=== PATIENT | female | born 1990 | race Caucasian/White ===

== ENCOUNTER 2018-08-24 11:00 | Inpatient (IN) | payer OTHER ==
[~2018-08-24] VITALS: Ht 167.6 cm; Wt 50.0 kg
[2018-08-24 11:06] VITALS: Ht 167.6 cm; Wt 50.0 kg
--- NOTE | 2018-08-24 11:18 | NUR ---
TO ROOM 11 FOR EVAL.
--- NOTE | 2018-08-24 11:30 | NUR ---
AWAKE ALERT ORIENTED,WAS SEEN IN [facility] TODAY ,C/O MID ABDOMINAL PIN WITH VOMITING
--- NOTE | 2018-08-24 11:58 | NUR ---
MEDICATED FOR ABD,PAIN AND VOMITING FLUIDS NSS WIDE OPEN
[2018-08-24 12:03] LABS: BASOPHIL % 0.1 % (0-2); PLATELET COUNT 452 x10^3mcL (130-400); RED CELL DISTRIBUTION WIDTH 14.1 % (11.5-14.5)
[2018-08-24 12:20] LABS: ALBUMIN 3.8 g/dL (3.4-5.0); ALKALINE PHOSPHATASE 73 U/L (46-116); ALT/SGPT 37 U/L (14-59); AST/SGOT 42 U/L (15-37); BILIRUBIN TOTAL 1.6 mg/dL (0.20-1.00); CALCIUM 8.4 mg/dL (8.5-10.1); CARBON DIOXIDE 20.9 mmol/L (21-32); CHLORIDE SERUM 84 mmol/L (98-107); GFR1 > 60 mL/min; GLUCOSE SERUM 197 mg/dL (74-106); LIPASE 169 IU/L (73-393); POTASSIUM SERUM 3.7 mmol/L (3.5-5.1); TOTAL PROTEIN, SERUM 7.7 g/dL (6.4-8.2)
[2018-08-24 12:23] LABS: SODIUM SERUM 123 mmol/L (136-145)
--- NOTE | 2018-08-24 13:11 | NUR ---
REMAINS NAUSEATED AND VOMITING ,MEDICATED WITH ZOFRAN FOR ADMISSION,,REPORT GIVEN TO YAMILETH
--- NOTE | 2018-08-24 13:45 | NUR ---
TOOK OVER CARE OF PATIENT. PATIENT STIL C/O NAUSEA - WAS MEDICATED IN ER WITH ZOFRAN. NO VOMITING. IV INFUSION OF NS COMMENCED AT 100 ML/HR. FATHER AT BEDSIDE.
[2018-08-24 13:48] VITALS: BP 126/80
--- NOTE | 2018-08-24 13:58 | NUR ---
RECEIVED PT FROM ER, PT ADMIT FOR HYPONATREMIA, INTRACTABLE VOMITTING, PT IS A/O X4, VERBAL RESPONSIVE, ABLE TO TELL WHAT SHE NEEDS, LUNG SOUND CLEAR BILATERAL, NO COUGH, NO SOB, PT IS ON TELE 35, ST, DENY ANY CHEST PAIN, BOWEL SOUND PRESENT ALL 4 QUADRANTS, NO DISTENTION, BUT C/O ABD PAIN 11/28, CONSTANTLY N/V, PT STATE SHE HAS BEEN DRINK SINCE FRIDAY, 3 DAYS STRAIGHT, PEDAL PULSE PRESENT BOTH FEET, NO EDEMA, IV AT RIGHT AC, NO LEAKING,NO INFILTRATION. ALL ADLS ASSIST, ALL NEED MET, CALL LIGHT IN REACH, WILL CONTINUE TO MONITOR.
--- NOTE | 2018-08-24 15:30 | NUR ---
AT 1510 - RECEIVED CALL FROM LAB WITH LACTIC ACID OF 3.[address] METZ. NO CHANGE IN ORDERS REQUIRED.
[2018-08-24] MEDS ORDERED: SEROQUEL25 MG PO (15:54)
[2018-08-24] MEDS ORDERED: TRILEPTAL300 MG PO (15:55)
--- NOTE | 2018-08-24 15:59 | NUR ---
PATIENT C/O PERSISTANT NAUSEA. SPOKE WITH DR METZ. NEW ORDER FOR REGLAN RECEIVED AND ADMINISTERED PER EMAR. PATIENT'S FATHER AT BEDSIDE.
--- NOTE | 2018-08-24 18:26 | NUR ---
AT 1740 - PATIENT REPORTS THAT NAUSEA HAS SUBSIDED. HOME MEDS LIST UPDATED AND DR METZ WAS NOTIFIED. ORDERS HAVE BEEN RECEIVED FOR CONTINUATION OF PATIENT'S HOME MEDS. NO C/O PAIN. IV INFUSING NS AT 100ML/HR. NPO EXCEPTS MEDS AND ICE CHIPS. PATIENT IS AWARE OF NEED TO COLLECT URINE FOR UA. CONTAINER PROVIDED. WILL ENDORSE CARE TO NIGHT NURSE.
[2018-08-24 18:36] VITALS: BP 113/80
--- NOTE | 2018-08-24 19:41 | NUR ---
SHIFT REASSESSMENT DONE.PATIENT ALERT AND ORIENTED.SZ PRECAUTION,NA IS LOW.BREATHING EASY.AMBULATORY/MILD GEN WEAKNESS.NS AT [address]VOIDING.NEED UA,NOT COLLECTED YET,PATIENT AWARE.SKIN INTACT.PARENTS AT BEDSIDE,SUPPORTIVE OF CARE.CALL LIGHT IN REACH.
[2018-08-24 20:16] VITALS: BP 122/79
--- NOTE | 2018-08-24 20:51 | NUR ---
PHOS IS LOW FROM PREVIOUS SHIFT,DR CARLTON MADE AWARE.
--- NOTE | 2018-08-24 21:04 | NUR ---
UA SENT TO LAB.UDS URC AND UA.
--- NOTE | 2018-08-24 21:05 | NUR ---
K PHOS NEUTRAL PO GIVEN,SWALLOWS WELL,GIVEN TACHO SURYA TO GO WITH IT.
[2018-08-24 21:29] LABS: microscopic required? YES; urine erythrocyte TRACE (NEGATIVE)
[2018-08-24 21:37] LABS: AMPHETAMINE QUAL UR NONE DETECTED (See below)
--- NOTE | 2018-08-24 23:43 | NUR ---
PATIENT CHECKED AT INTERVALS,SLEEPING COMFORTABLY.CALL LIGHT IN REACH.
--- NOTE | 2018-08-25 00:36 | NUR ---
CHECKED, NURSING ROUNDS,AWAKENED BY IV ALARM.NO COMPLAINT.
--- NOTE | 2018-08-25 05:40 | NUR ---
BRP,I AND O MEASURED.IVF INFUSING.AM MED GIVEN.NO DISTRESS.REMAINS NPO,ICE CHIPS REQUESTED TO MOISTEN MOUTH.
[2018-08-25 05:54] VITALS: BP 119/80
[2018-08-25 06:41] LABS: BASOPHIL % 0.3 % (0-2); PLATELET COUNT 245 x10^3mcL (130-400); RED CELL DISTRIBUTION WIDTH 14.5 % (11.5-14.5)
[2018-08-25 07:03] LABS: CALCIUM 7.7 mg/dL (8.5-10.1); CARBON DIOXIDE 24.3 mmol/L (21-32); CHLORIDE SERUM 98 mmol/L (98-107); CREATININE SERUM 0.7 mg/dL (0.6-1.0); GFR1 > 60 mL/min; GLUCOSE SERUM 92 mg/dL (74-106); MAGNESIUM 2.2 mg/dL (1.8-2.4); PHOSPHOROUS 1.6 mg/dL (2.5-4.9); SODIUM SERUM 133 mmol/L (136-145)
--- NOTE | 2018-08-25 07:33 | NUR ---
RECEIVED PT'S REPORT FROM LEAVING NURSE. PT SEEN REST ON BED, SEIZURE PRECAUTION APPLIED. PT REPORTED ABD MUSCLE SORE 2/2 PREVIOUS VOMITING, DENIED NAUSEA AT THIS TIME. PT BREATHING ON RA, EVEN, UN LABORED. IV SITE PATENT, INTACT. IVF INFUSING WELL.
[2018-08-25 08:06] LABS: T3 TOTAL 1.06 ng/mL
[2018-08-25 08:07] LABS: FREE T4 1.09 ng/dL (0.76-1.46); FREE THYROXINE INDEX 2.7 ug/dL (1.4-4.5); T4(THYROXINE) 6.8 ug/dL (4.7-13.3)
[2018-08-25 09:13] VITALS: BP 100/50; BP 122/85
--- NOTE | 2018-08-25 11:29 | NUR ---
PAGE GATED DR. METZ ABOUT PT'S LOW K 3.0. WAITING FOR ORDER.
[2018-08-25 12:59] VITALS: BP 126/84
--- NOTE | 2018-08-25 14:30 | NUR ---
POTASSIUM 40MEQ GIVEN PER ORDER. IV KCL 40MEQ IS INFUSING.
--- NOTE | 2018-08-25 18:00 | NUR ---
THROUGH SHIFT, PT TOLERATE WELL WITH CURRENT DIET. NO COMPLAIN OF NAUSEA. PT BREATHING ON RA, EVEN, UNLABORED. PT AMBULATORY. IV SITE PATENT, INTACT. IVF INFUSING WELL.
[2018-08-25 18:08] VITALS: BP 129/86
--- NOTE | 2018-08-25 19:10 | NUR ---
PT'S REPORT GIVEN TO RECEIVING NURSE. QUESTIONS AND CONCERNS ANSWER.
--- NOTE | 2018-08-25 19:24 | NUR ---
SHIFT REASSESSMENT DONE.PATIENT ALERT AND OREINTED.NOT IN RESP DISTRESS.IVF NS AT 70 CC/ HOUR.IN GOOD SPIRIT.TELE 35 SR.NO CHEST PAIN.TELE 35 SR.NO VOMITING,NOW ON FULL LIQUID DIET.CALL LIGHT IN REACH.
[2018-08-25 20:43] VITALS: BP 115/78
--- NOTE | 2018-08-25 23:17 | NUR ---
PATIENT TOOK ALL PM MEDS,SWALLOWS WELL.UP AND ABOUT RESTROOM,VOIDING QS.HAPPY THAT SHE IS NOW ON FULL LIQUID DIET.QUIET ENVIRONMENT MAINTAINED.CALL LIGHT IN REACH.
--- NOTE | 2018-08-26 02:45 | NUR ---
CHECKED FOR NEEDS,NO COMPLAINT.
[2018-08-26 05:38] VITALS: BP 104/67
--- NOTE | 2018-08-26 05:50 | NUR ---
AM MED GIVEN.I AND O MEASURED.NS AT 70 CC/ HOUR.WILL ENDORSE TO NEXT SHIFT.
[2018-08-26 06:54] LABS: BASOPHIL % 0.5 % (0-2); PLATELET COUNT 191 x10^3mcL (130-400)
[2018-08-26 07:01] LABS: RED CELL DISTRIBUTION WIDTH 14.8 % (11.5-14.5)
--- NOTE | 2018-08-26 07:05 | NUR ---
RECEIVED PATIENT FROM AML ANALYST NURSE. PATIENT IS RESTING WITH BOTH EYES CLOSED, AROUSABLE. TELE#35, SR, HR 85. SEIZURE PREC IN PLACE. ON ROOM AIR, BREATHING EVEN AND UNLABORED. ASPIRATION PREC IN PLACE. IV NOTED TO RAC, IVF INFUSING WELL ORDERED, NO S/S ERYTHEMA AT SITE. CALL LIGHT WITHIN EASY REACH. WILL CONTINUE PLAN OF CARE.
[2018-08-26 07:06] LABS: CARBON DIOXIDE 27.2 mmol/L (21-32); CHLORIDE SERUM 102 mmol/L (98-107); CREATININE SERUM 0.6 mg/dL (0.6-1.0); GFR1 > 60 mL/min; GLUCOSE SERUM 91 mg/dL (74-106); PHOSPHOROUS 2.3 mg/dL (2.5-4.9); POTASSIUM SERUM 3.5 mmol/L (3.5-5.1); SODIUM SERUM 136 mmol/L (136-145)
[2018-08-26 07:59] VITALS: BP 113/68
[2018-08-26 11:56] VITALS: BP 97/61
[2018-08-26 12:06] VITALS: BP 97/61
--- NOTE | 2018-08-26 14:14 | NUR ---
PATIENT GIVEN ALL DC INSTRUCTIONS AT THIS TIME. ALL QUESTIONS ANSWERED REGARDING DC. IV REMOVED AND CATHETER TIP INTACT. TELE BOX REMOVED AND RETURNED TO JOB TRAINING SPECIALIST. CALL LIGHT WITHIN EASY REACH. PATIENT TO NOTIFY WHEN RIDE IS HERE FOR CAKE WINDER.
--- NOTE | 2018-08-26 14:36 | NUR ---
PATIENT TAKEN DOWN TO DC OFFICE AT THIS TIME. AWAKE, ALERT AND ORIENTED. DENIES PAIN AT TIME OF DC. VS STABLE.
== END 2018-08-26 14:35 | disposition home or self-care (01) | DRG 426 ==
LOC: ED 11:00 → DU 12:49
PROVIDERS: Emergency Medicine; Family Medicine; ADMIT Internal Medicine
DX: E87.1 Hypo-osmolality and hyponatremia (principal); E87.2 Acidosis; F10.10 Alcohol abuse, uncomplicated; F14.10 Cocaine abuse, uncomplicated; T51.0X1A Toxic effect of ethanol, accidental (unintentional), initial encounter; F31.30 Bipolar disorder, current episode depressed, mild or moderate severity, unspecified; R74.0 Nonspecific elevation of levels of transaminase and lactic acid dehydrogenase [LDH]; R73.9 Hyperglycemia, unspecified; G43.909 Migraine, unspecified, not intractable, without status migrainosus; Y90.0 Blood alcohol level of less than 20 mg/100 ml; Z68.1 Body mass index [BMI] 19.9 or less, adult; Y92.098 Other place in other non-institutional residence as the place of occurrence of the external cause
CPT/HCPCS: 83880; 84439; G0480; J2405; J3480; J3490; J7030; J8597

== ENCOUNTER 2019-11-26 18:56 | Emergency (ER) | payer OTHER ==
[~2019-11-26] VITALS: Ht 170.2 cm; Wt 50.8 kg
[~2019-11-26 18:56] MED LIST: SEROQUEL25 MG PO; TRILEPTAL300 MG PO
[2019-11-26 19:06] VITALS: Ht 170.2 cm; Wt 50.8 kg
[2019-11-26 19:43] LABS: BASOPHIL % 0.2 % (0-2); PLATELET COUNT 379 x10^3mcL (130-400); RED CELL DISTRIBUTION WIDTH 14.8 % (11.5-14.5)
[2019-11-26 19:51] LABS: CALCIUM 8.3 mg/dL (8.5-10.1); CARBON DIOXIDE 19.6 mmol/L (21-32); CHLORIDE SERUM 91 mmol/L (98-107); GFR1 > 60 mL/min; GLUCOSE SERUM 101 mg/dL (74-106); POTASSIUM SERUM 3.5 mmol/L (3.5-5.1); SODIUM SERUM 134 mmol/L (136-145)
[2019-11-26 19:55] LABS: ALBUMIN 4.2 g/dL (3.4-5.0); ALKALINE PHOSPHATASE 67 U/L (46-116); ALT/SGPT 91 U/L (14-59); AST/SGOT 119 U/L (15-37); BILIRUBIN TOTAL 0.8 mg/dL (0.20-1.00); TOTAL PROTEIN, SERUM 7.9 g/dL (6.4-8.2)
[2019-11-26 22:12] LABS: microscopic required? YES; urine erythrocyte 2+ (NEGATIVE)
[2019-11-26 22:26] LABS: AMPHETAMINE QUAL UR NONE DETECTED (See below)
[2019-11-26 23:36] VITALS: BP 98/68
== END 2019-11-26 22:35 | disposition home or self-care (01) ==
LOC: ED 18:56
PROVIDERS: Emergency Medicine
DX: E86.0 Dehydration (principal); F10.239 Alcohol dependence with withdrawal, unspecified; G43.909 Migraine, unspecified, not intractable, without status migrainosus; Y90.9 Presence of alcohol in blood, level not specified
CPT/HCPCS: J2060; J2405; Q0092